=== PATIENT | female | born 1985 | race Caucasian/White ===

== ENCOUNTER 2019-01-31 16:12 | Emergency (ER) | payer MEDICAID, SELFPAY ==
--- NOTE | 2019-01-31 16:15 | W.ED.GENAD ---
Discharge Plan Disposition Patient Disposition: HOME Condition: Fair Discharge Details Chief Complaint: Sorethroat Clinical Impression: URI (upper respiratory infection), Strep pharyngitis Primary Care Provider: Rufina Boyer ED Provider: Tashia Owens Home Meds and New Rx's Prescriptions: Continued sertraline [Zoloft] 50 mg Tablet PO DAILY RF: 0 ibuprofen 200 mg Tablet RF: 0 medroxyprogesterone [Depo-Provera] 150 mg/mL Syringe IM RF: 0 Discharge Instructions Instructions: Strep Throat (ED), Upper Respiratory Infection (ED) Additional Instructions: Encourage hydration. continue with Tylenol and/or Ibuprofen as needed for discomfort. You were treated here with intramuscular penicillin. change your toothbrush. If you develop fevers/chills, increased pain, inability to stay hydrated, difficulty swallowing or other new/worsening symptoms please seek care urgently once again. Please follow up with primary care as previously scheduled, later this week. Referrals: Rufina Boyer [Primary Care Provider] - Discharge Data Discharge Date/Time-TO BE ENTERED AT DEPARTURE: 01/31/19 17:29 Medical Decision Making Patient is a 33 year old female presenting today with c/c of sore throat for the past week. States initially she felt like she had the flu. Was endorsing cough, congestion, bilateral otalgia, GI upset. Gi symptoms have improved. She continues to have cough, otalgia and sore throat. She reports she has had strep multiple times and is concerned that she may have this again .States initially she had fevers, none recently. States she subjectively felt hot. Patient is menopausal. On exam, she appears nontoxic. VS WNL. Posterior oropharynx iwth erythematous with 1+ bilateral tonsillar swelling. No exudate. Exam otherwise benign. Discussed treatment options with the patient, including a watch and wait approach, and she prefers to complete Penicillin IM while here. Patient received IM Penicillin. Discussed expected coruse. Encouraged hydration. Discussed sympomatic management. She was given strict return precautions. She will f/u wit PCP this week for reevaluation if not improved. All of her questions and concerns were addressed, she is in agreement with this plan. HPI General Mode of arrival: ambulatory. Date/Time Provider Initiated Documentation: 01/31/19 16:14. Limitations to Documentation: no limitations. Information obtained by: patient and RN notes reviewed. History of Present Illness 33 year old F presents to the emergency department with the chief complaint of sore throat, described as moderate and similar to prior episodes, Quality is described as burning, and is localized to the mouth. Patient reports no radiation. Patient started experiencing this week(s) (1) and it has been constant. Medication improves symptom(s), No exacerbating factors reported . Patient notes cough, fever/chills and loss of appetite; denies chest pain, diaphoresis, headaches, nausea/vomiting (reports vomiting and diarrhea during initial illness but reports this has since resolved) and rash. Patient did receive the following treatments prior to arrival, NSAID Related Data Home Medications Medication Instructions Recorded Confirmed ibuprofen 01/31/19 medroxyprogesterone [Depo-Provera] mg IM 01/31/19 sertraline [Zoloft] mg PO DAILY 01/31/19 Allergies Allergy/AdvReac Type Severity Reaction Status Date / Time acetaminophen Allergy Unverified 01/31/19 16:31 Review of Systems Constitutional Reports as per HPI, Reports chills, Reports fatigue, Reports fever(s), Denies headache(s) and Reports poor appetite Eyes Reports as per HPI, Denies eye discharge and Denies irritation ENT Reports as per HPI, Denies change in voice, Reports dysphagia, Denies dizziness, Denies ear discharge, Reports otalgia, Denies headache(s), Denies nasal congestion, Denies nasal discharge, Denies neck pain, Denies sinus pain, Denies sinus pressure, Reports sore throat and Denies throat swelling Cardiovascular Reports as per HPI, Denies chest pain and Denies dyspnea Respiratory Reports as per HPI and Denies dyspnea Gastrointestinal Reports as per HPI, Denies abdominal pain, Denies change in bowel habits, Reports dysphagia, Denies nausea and Denies vomiting Musculoskeletal Denies neck pain Integumentary/Breasts Reports as per HPI and Denies rash Neurologic Reports as per HPI, Denies dizziness and Denies headache(s) Endocrine Reports fatigue Allergic/Immunologic Denies throat swelling Exam Const General: cooperative, healthy appearing, comfortable, no acute distress, well developed and well groomed Nutritional Appearance: average body habitus and well nourished Orientation: alert and awake [facility] Head: normal to inspection, normocephalic and atraumatic Ears: hearing grossly normal bilaterally, external ears normal and TM's normal bilaterally General nose exam: external nose normal and nares normal Face and sinus: normal facial exam, sinuses nontender and face symmetric Mouth: oral mucosae normal, lip normal, tongue normal, oropharynx normal, moist mucous membranes, No mouth trauma, no muffled voice, no trismus and No restricted motion Teeth and gingiva: dentition normal Throat: uvula midline and abnormal tonsil bilaterally erythema and hypertrophy 1+ Eyes General: appearance normal, both eyes and all related structures Neck Neck: normal visual inspection, full ROM, no lymphadenopathy and no meningeal signs Resp Effort & Inspection: normal respiratory effort, able to speak in complete sentences and no respiratory distress Auscultation: clear to auscultation bilaterally, no rales, no rhonchi and no wheezes Cardio Rate: regular rate Rhythm: regular rhythm Heart Sounds: S1 normal and S2 normal Skin General skin exam: no rashes or lesions noted Neuro General: alert and awake Cognition: normal cognition Speech: speech normal Gait: normal gait Psych Appearance: grossly normal and well kempt Mental Status: mental status grossly normal Speech and Movement: speech and movement normal
[2019-01-31 16:27] VITALS: BP 120/88; PULSE 80; RESP 18; TEMP 36.8; O2SAT 99
== END 2019-01-31 17:29 | disposition home or self-care (01) ==
PROVIDERS: Emergency Provider Physician Assistant; PCP Nurse Practitioner Family
DX: J02.0 Streptococcal pharyngitis (principal)
CPT/HCPCS: 87880; 96372; 99284; J0561

== ENCOUNTER 2019-05-26 17:53 | Emergency (ER) | payer MEDICAID, SELFPAY ==
[2019-05-26 18:04] VITALS: BP 133/86; PULSE 84; RESP 16; TEMP 36.7; O2SAT 99
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
[2019-05-26] MEDS: traMADol 50 MG TAB PO (18:33)
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
[2019-05-26 19:08] VITALS: BP 138/95; PULSE 84; RESP 16; O2SAT 96
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
== END 2019-05-26 19:30 | disposition home or self-care (01) ==
PROVIDERS: Emergency Provider Emergency Medicine; PCP Nurse Practitioner Family
DX: S16.1XXA Strain of muscle, fascia and tendon at neck level, initial encounter (principal); S40.012A Contusion of left shoulder, initial encounter; S70.12XA Contusion of left thigh, initial encounter; V43.52XA Car driver injured in collision with other type car in traffic accident, initial encounter
CPT/HCPCS: 73552; 99284; 72125; 73030; L0172

== ENCOUNTER → 2023-09-15 01:47 | Outpatient (CLI) | payer MEDICAID, SELFPAY ==
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
--- NOTE | 2023-09-15 08:10 | DI.MAMMO_ITS ---
Exam(s) MAMMO SCREENING EXAM: MAMMO SCREENING CLINICAL HISTORY: SCREENING,PRIOR TO MASTOPLEXY TECHNIQUE: Mammograms were interpreted according to the usual protocol including computer analysis w Digital Lab CAD system, tomosynthesis and C-view imaging. COMPARISON: 2018 and 2020 from [facility] FINDINGS: The breasts are composed of heterogeneously dense fibroglandular densities, Breast Density category C . No suspicious masses or suspicious microcalcifications are seen. No skin thickening or abnormal axillary lymph nodes are seen. There has been no significant change from prior exams. IMPRESSION: BI-RADS Category 1, Negative mammogram. Yearly screening mammography is recommended after age 40 or sooner if clinically indicated. Breast Density Category C, heterogeneously Dense. The mammogram demonstrates the patient's breast tissue is dense. Dense breast tissue is very common a nd is not abnormal but dense breast tissue can make it harder to find cancer on a mammogram. Also, de nse breast tissue may increase breast cancer risk. This information about the result of the mammogram report was provided to the patient to raise their awareness. Use this report when you speak with the patient about their risks for breast cancer, which includes their family history. At that time, you may recommend additional screening tests (Ultrasound or MRI) as they might be useful based on their r isk. A negative radiographic report should not delay biopsy if a dominant or clinically suspicious mass is present. Up to ten percent of cancers are not identified on mammography. A negative report may reinforce clinical impression. Adenosis and dense breasts may obscure an underlying neoplasm. False positive reports average 6 to 10%.
== END ==
PROVIDERS: PCP Nurse Practitioner Family; Visit Provider Nurse Practitioner Primary Care
DX: Z12.31 Encounter for screening mammogram for malignant neoplasm of breast (principal); Z01.818 Encounter for other preprocedural examination
CPT/HCPCS: 77063; 77067; 71046

== ENCOUNTER 2023-09-26 10:21 | Emergency (ER) | payer MEDICAID, SELFPAY ==
[2023-09-26 10:35] VITALS: BP 137/80; PULSE 95; RESP 18; TEMP 36.9; O2SAT 100
--- NOTE | 2023-09-26 14:43 | ED.GENADUL_ITS ---
Discharge Plan Disposition Patient Disposition: Home Condition: Stable Discharge Details Clinical Impression: Change or removal of drains Primary Care Provider: Rufina Boyer ED Provider: Angella Sanchez Home Meds and New Rx's Prescriptions: No Action sertraline [Zoloft] 50 mg Tablet 150 mg PO DAILY ibuprofen 200 mg Tablet tramadol 50 mg Tablet 50 mg PO .Q6 HOURS PRN Discharge Data Discharge Physician: Angella Sanchez [facility] General Date/Time Provider Initiated Documentation: 09/26/23 13:23 . HPI Narrative: 38-year-old female presents for evaluation of drain removal. Patient had abdominoplasty performed in [place]. She has a drain in place which was due to come out but she kept it in place during flight home. There has been minimal drainage. Small amount of erythema surrounding the drain insertion. Sutures have migrated inside the wound. No fevers. Related Data Home Medications Medication Instructions Recorded Confirmed ibuprofen 200 mg tablet 01/31/19 sertraline 50 mg tablet (Zoloft) 150 mg PO DAILY 01/31/19 05/26/19 tramadol 50 mg tablet 50 mg PO .Q6 HOURS PRN 05/26/19 05/26/19 Allergies Allergy/AdvReac Type Severity Reaction Status Date / Time acetaminophen Allergy Unverified 05/26/19 18:07 General Stated Complaint: Recheck ROSS: 4 Review of Systems Narrative: Remainder of review of systems otherwise negative except for as noted in the HPI x 5. Exam Narrative Exam Narrative: General: non-toxic, no respiratory distress, comfortable HEENT: normocephalic, atraumatic, lids and lashes normal, PERRL, EOMI, anicteric sclera, no conjunctival injection, moist oral mucosa Abdomen: Sutures in place across lower abdomen, drain in place to right lower abdomen/groin, small amount of erythema surrounding opening Musculoskeletal: full range of motion of arms and legs, no tenderness to palpation. no clubbing, cyanosis, or edema Neurologic: appropriate for age, strength normal Psych: alert and oriented Skin: no petechiae, no lesions, warm and dry Course Vital Signs Vital signs: Vital Signs Temperature 36.9 C 09/26/23 10:35 Pulse 95 H 09/26/23 10:35 Respiratory Rate 18 09/26/23 10:35 Blood Pressure 137/80 04/05/24 10:35 Pulse Oximetry 100 04/05/24 10:35 Temperature 36.9 C 09/26/23 10:35 Temperature Source Temporal Artery Scan 09/26/23 10:35 Pulse 95 H 09/26/23 10:35 Respiratory Rate 18 09/26/23 10:35 Blood Pressure 137/80 09/26/23 10:35 Blood Pressure Position Sitting 09/26/23 10:35 Pulse Oximetry 100 09/26/23 10:35 Oxygen Delivery Method Room Air 09/26/23 10:35 Oxygen Flow Rate 0 09/26/23 10:35 Pain Level 4 09/26/23 10:35 Medical Decision Making 38-year-old female presents for drain removal. Drain was removed using scalpel and scissors. No significant drainage was noted with removal of drain. Patient will continue to monitor area for signs of infection. She understands occasions to return. Quality:SDOH Health Related Social Needs: No Data to Display PFSH All Active Problems Change or removal of drains (Acute) Pyelonephritis complicating (Acute 03/29/14) Social History Smoking/Tobacco Use Status: Never Smoking risk assessment performed?: Yes Substance use type: does not use
== END 2023-09-26 15:03 | disposition home or self-care (01) ==
PROVIDERS: Emergency Provider Emergency Medicine Emergency Medical Services; PCP Nurse Practitioner Family
DX: Z48.03 Encounter for change or removal of drains (principal); Z98.890 Other specified postprocedural states
CPT/HCPCS: 99282

== ENCOUNTER 2023-09-30 13:11 | Emergency (ER) | payer MEDICAID, SELFPAY ==
[2023-09-30 13:24] VITALS: BP 131/79; PULSE 96; RESP 16; TEMP 36.8; O2SAT 97
--- NOTE | 2023-09-30 13:40 | ED.GENADUL_ITS ---
Discharge Plan Disposition Patient Disposition: Home Discharge Details Clinical Impression: Encounter for removal of sutures Primary Care Provider: Rufina Boyer ED Provider: Abhijeet Hernández Home Meds and New Rx's Prescriptions: Continued sertraline [Zoloft] 50 mg Tablet 150 mg PO DAILY ibuprofen 200 mg Tablet naproxen sodium [Aleve] 220 mg tablet 440 mg PO BID cephalexin 500 mg capsule 500 mg PO BID Patient Comments: TAKE 1 CAPSULE BY MOUTH TWICE DAILY FOR 2 WEEKS bupropion HCl 300 mg tablet extended release 24 hr 300 mg PO DAILY Patient Comments: TAKE ONE TABLET BY MOUTH EVERY DAY Discharge Instructions Additional Instructions: You are seen in the emergency department to have your sutures removed. As we discussed please return to the emergency department if you develop abdominal pain nausea vomiting or any signs of infection such as foul-smelling drainage. Otherwise please follow-up with your primary care provider as needed. HPI General Date/Time Provider Initiated Documentation: 09/30/23 13:36 . HPI Narrative: MDM This is an overall very well-appearing normothermic and not tachycardic 38-year-old female with request for suture removal following abdominoplasty. Using sterile instruments I removed the 1, clear nylon suture in the patient's right lower quadrant at her former drain site. I subsequently removed the 5 clear nylon sutures around her umbilicus. She tolerated this procedure well. No pain or proportion to suggest necrotizing soft tissue infection. No fevers to suggest postoperative infection. No increasing pain nor abdominal distention to suggest postoperative complication. No vomiting to suggest small bowel obstruction. No dysuria no frequency so doubt UTI. Patient and I discussed return to the ED for any nausea vomiting or worsening pain. We also discussed return for any foul-smelling drainage or fevers. Patient understood her return indications and was discharged with an empiric trial of expectant outpatient management. Chronic conditions affecting the care of the patient: N/A History obtained from an outside historian: N/A External record review: [facility] EMR Medications: N/A Social determinants of health affecting disposition: N/A Management discussed with: N/A Treatment/interventions considered: N/A Response to therapies provided: N/A HPI This is a 38-year-old female 13 days postop status post abdominoplasty in [place] arrived to the emergency department via private vehicle requesting to have her sutures removed as instructed by her surgeon. Patient had a drain removed 4 days ago. She notes that there is 1 persistent suture at her drain site and she also requests her umbilical sutures to be removed. She has been only using as needed ibuprofen for pain but no opiates. She is having bowel movements. She has had no recent trauma to her abdomen. She has had no nausea nor vomiting. No fevers. No dysuria nor frequency. Exam General: Well-appearing in no acute distress speaking in complete sentences. Head: Normocephalic, atraumatic. Eye: Extraocular eye movements intact. No conjunctival injection. No scleral icterus. Ear, nose, mouth, throat: Grossly normal inspection. Normal voice, handling secretions normally. Neck: Trachea midline. Cardiovascular: Well-perfused distal extremities. Respiratory: Nonlabored respiration. Gastrointestinal: Nondistended abdomen. Soft nontender abdomen. In the patient's right lower quadrant there is a well-healing drain site with 1 nylon suture. In the patient's umbilicus there are 5 sutures. No foul-smelling drainage. No purulent drainage. No fluctuance. No significant erythema. Musculoskeletal: No edema. Moving all 4 extremities spontaneously. Skin: Normal for age and race, grossly normal temperature and turgor. No acute rash. Neurologic: Alert and appropriate, no apparent acute deficits. Psychiatric: Mood and manner are appropriate. Grooming and personal hygiene are appropriate. Related Data Home Medications Medication Instructions Recorded Confirmed ibuprofen 200 mg tablet 01/31/19 sertraline 50 mg tablet (Zoloft) 150 mg PO DAILY 01/31/19 09/30/23 bupropion HCl 300 mg 24 hr tablet, 300 mg PO DAILY 09/30/23 09/30/23 extended release cephalexin 500 mg capsule 500 mg PO BID 09/30/23 09/30/23 naproxen sodium 220 mg tablet 440 mg PO BID 09/30/23 09/30/23 (Aleve) Allergies Allergy/AdvReac Type Severity Reaction Status Date / Time acetaminophen Allergy Other (See Unverified 09/30/23 13:28 Comment) General Stated Complaint: SutureRem ROSS: 4 Course Vital Signs Vital signs: Vital Signs Temperature 36.8 C 09/30/23 13:24 Pulse 96 H 09/30/23 13:24 Respiratory Rate 16 09/30/23 13:24 Blood Pressure 131/79 09/30/23 13:24 Pulse Oximetry 97 09/30/23 13:24 Temperature 36.8 C 09/30/23 13:24 Temperature Source Tympanic 09/30/23 13:24 Pulse 96 H 09/30/23 13:24 Respiratory Rate 16 09/30/23 13:24 Respiratory Effort Normal, Non-Labored 09/30/23 13:31 Blood Pressure 131/79 09/30/23 13:24 Blood Pressure Position Sitting 09/30/23 13:24 Pulse Oximetry 97 09/30/23 13:24 Oxygen Delivery Method Room Air 09/30/23 13:24 Oxygen Flow Rate 0 09/30/23 13:24 Medical Decision Making Quality:SDOH Health Related Social Needs: No Data to Display PFSH All Active Problems (Updated 09/30/23 @ 14:31 by Abhijeet Hernández MD) Encounter for removal of sutures (Acute) Change or removal of drains (Acute) Pyelonephritis complicating (Acute 03/29/14) Social History Smoking/Tobacco Use Status: Never Smoking risk assessment performed?: Yes Details: CBD gummies QHS Do you feel safe at home: Yes Do you feel safe in your relationship?: Yes
== END 2023-09-30 14:44 | disposition home or self-care (01) ==
PROVIDERS: Emergency Provider Emergency Medicine; PCP Nurse Practitioner Family
DX: Z48.02 Encounter for removal of sutures (principal)
CPT/HCPCS: 99281